=== PATIENT | female | born 1990 | race Hispanic/Latino ===

== ENCOUNTER 2016-07-13 13:32 | Emergency (ER) ==
[2016-07-13 14:15] LABS: MANUAL DIFF NEEDED? NO
[2016-07-13 14:18] LABS: BASO% 0.3 % (0.0-0.8); EOS# 0.13 X1000 (0.0-0.7); EOS% 1.2 % (0.0-10.0); HEMATOCRIT 37.2 % (37.0-47.0); HEMOGLOBIN 12.4 g/dL (12.0-16.0); IMM GRAN# 0.02 X1000 (0.0-0.04); IMM GRAN% 0.2 % (0.0-0.5); LYMPH# 1.51 X1000 (1.2-3.4); LYMPH% 13.4 % (20.5-51.1); MCH 30.2 PG (27-31); MCHC 33.3 g/dL (33-37); MCV 90.5 FL (81-99); MONO# 0.63 X1000 (0.11-0.59); MONO% 5.6 % (1.7-9.3); MPV 11.3 FL (7.4-10.4); NEUT% 79.3 % (42.2-75.2); PLT 271 X1000 (130-400); RBC 4.11 XMIL (4.2-5.4)
[2016-07-13 14:45] LABS: AGAP 12; ALBUMIN 4.2 g/dL (3.5-5.0); ALKALINE PHOSPHATASE 73 U/L (32-104); BUN 6 mg/dL (8-22); CALCIUM 9.2 mg/dL (8.8-10.2); CHLORIDE 100 mmol/L (98-107); COSMO 271; GOT 10 U/L (10-30); GPT 6 U/L (10-36); POTASSIUM 4.1 mmol/L (3.5-5.1); SODIUM 137 mmol/L (136-145); TCO2 25 mmol/L (25-35); TOTAL BILIRUBIN 0.51 mg/dL (0.20-1.00); TOTAL PROTEIN 7.5 g/dL (6.3-8.3)
[2016-07-13] MEDS ORDERED: CLINDAMYCIN IM ONE (15:08)
--- NOTE | 2016-07-13 15:14 | PROVIDER DOCUMENTATION ---
[facility] General - General Chief Complaint: Abscess Stated Complaint: ABSCESS Time Seen by Provider: 07/13/16 14:58 Source: patient Home Medications: Home Medication List Medication Instructions Recorded Confirmed Last Taken Type Hydrocodone/APAP 5 mg/325 mg 1 each PO Q4-6H PRN PRN #14 tablet 07/13/16 Unknown Rx [Hugoton-5] Penicillin V Potassium 500 mg PO 4XDAY #28 tablet 07/13/16 Unknown Rx - History of Present Illness-[facility] General Nature of Presenting Problem: 25 y/o F with no chronic medical problems presents with dental pain and swelling that began yesterday. Patient states she has had trouble with the left upper molar in the past. She has not seen a dentist regarding this. She denies any fever, trouble swallowing or trouble breathing. EENT Location: reports: dental Quality of Pain: reports: aching Severity: reports: moderate Onset/Duration: reports: last night Timing: reports: still present Prearrival Treatment: Initiated no prearrival treatment Associated Symptoms: reports: facial pain/swelling, tooth pain. denies: drooling, fever, sore throat, voice change Similar Symptoms Previously?: Yes Review of Systems - Adult - REVIEW OF SYSTEMS - ADULT Constitutional: reports: no symptoms reported. denies: chills, fever Eyes: reports: no symptoms reported. denies: decreased vision, blurred vision Ears, Nose, Mouth & Throat: denies: ear pain, hearing loss Cardiovascular: reports: no symptoms reported. denies: chest pain Respiratory: reports: no symptoms reported. denies: cough, shortness of breath Gastrointestinal: reports: no symptoms reported. denies: nausea, vomiting Genitourinary: reports: no symptoms reported Musculoskeletal: reports: no symptoms reported. denies: neck pain Integumentary: reports: no symptoms reported. denies: itching, rash Neurological: reports: no symptoms reported. denies: headache/migraines, numbness Psychiatric: reports: no symptoms reported Endocrine: reports: no symptoms reported Hematologic/Lymphatic: reports: no symptoms reported Allergic/Immunologic: reports: no symptoms reported All Other Systems: Reviewed and Negative Past History - Adult - PAST MEDICAL HISTORY-ADULT Review of Records: reports: Nursing Assessment Review, Medications Reviewed Physical Exam- EENT - Physical Exam EENT Initial Vital Signs Reviewed: Yes General Appearance: appears well, alert, no apparent distress Eye Exam: bilateral eye: normal inspection, PERRL, EOMI Nasal Exam: normal inspection Throat Exam: pharynx normal, dental tenderness, other (left 1st molar with tenderness and surrounding erythema of gums. No purulent drainage or fluctuance. ). negative: excessive drooling, pharynx swelling, tongue swollen, tonsillar swelling, trismus, uvula swelling, voice changes Neck: non-tender, full range of motion, supple, normal inspection Respiratory: no respiratory distress, no accessory muscle use Cardiovascular: normal peripheral pulses, regular rate, rhythm Lymphatic: no adenopathy Extremity: normal gait, normal inspection Integumentary: normal color, normal turgor, warm/dry Neurologic: grossly normal, no motor/sensory deficits Psych/Mental Status: normal mood/affect, normal thought content, normal thought process, oriented x 3 Progress - PLAN OF CARE/RESULTS Progress/Plan/Lab Results: Laboratory Tests 07/13/16 07/13/16 14:07 14:07 WBC 11.24 H RBC 4.11 L Hgb 12.4 Hct 37.2 MCV 90.5 MCH 30.2 MCHC 33.3 RDW Std Deviation 12.9 Plt Count 271 MPV 11.3 H Immature Gran % (Auto) 0.2 Neut % (Auto) 79.3 H Lymph % (Auto) 13.4 L Fountain % (Auto) 5.6 Eos % (Auto) 1.2 Baso % (Auto) 0.3 Immature Gran # (Auto) 0.02 Neut # (Auto) 8.92 H Lymph # (Auto) 1.51 Fountain # (Auto) 0.63 H Eos # (Auto) 0.13 Baso # (Auto) 0.03 Sodium 137 Potassium 4.1 Chloride 100 Carbon Dioxide 25 Anion Gap 12 BUN 6 L Creatinine 0.7 Estimated GFR/1.73 m2 > 60 BUN/Creatinine Ratio 9 Glucose 91 Calculated Osmolality 271 Calcium 9.2 Total Bilirubin 0.51 AST 10 ALT 6 L Alkaline Phosphatase 73 Total Protein 7.5 Albumin 4.2 Globulin 3.3 Albumin/Globulin Ratio 1.3 Orders Category Date Time Status CBC WITH DIFF [HEME] Stat Lab 07/13/16 14:07 Completed CMP [COMPREHENSIVE METABOLIC PANEL] [CHEM] Stat Lab 07/13/16 14:07 Completed Clindamycin Med 07/13/16 15:08 Discontinued 600 mg IM NOW ONE Vital Signs Temp Pulse Resp BP Pulse Ox 07/13/16 14:03 98.5 F 109 H 18 125/94 100 Hydrocodone/APAP 5 mg/325 mg [Hugoton-5] 1 each PO Q4-6H PRN PRN #14 tablet Penicillin V Potassium 500 mg PO 4XDAY #28 tablet 07/13/16 Laboratory 07/13/16 07/13/16 14:07 14:07 WBC 11.24 H RBC 4.11 L Hgb 12.4 Hct 37.2 MCV 90.5 MCH 30.2 MCHC 33.3 RDW Std Deviation 12.9 Plt Count 271 MPV 11.3 H Immature Gran % (Auto) 0.2 Neut % (Auto) 79.3 H Lymph % (Auto) 13.4 L Fountain % (Auto) 5.6 Eos % (Auto) 1.2 Baso % (Auto) 0.3 Immature Gran # (Auto) 0.02 Neut # (Auto) 8.92 H Lymph # (Auto) 1.51 Fountain # (Auto) 0.63 H Eos # (Auto) 0.13 Baso # (Auto) 0.03 Sodium 137 Potassium 4.1 Chloride 100 Carbon Dioxide 25 Anion Gap 12 BUN 6 L Creatinine 0.7 Estimated GFR/1.73 m2 > 60 BUN/Creatinine Ratio 9 Glucose 91 Calculated Osmolality 271 Calcium 9.2 Total Bilirubin 0.51 AST 10 ALT 6 L Alkaline Phosphatase 73 Total Protein 7.5 Albumin 4.2 Globulin 3.3 Albumin/Globulin Ratio 1.3 Departure - Departure Time of Disposition Order: 15:08 DIAGNOSIS: Dental infection Disposition: HOME 01 Certified Medical Emergency: Emergent Condition: Good Additional Instructions: Follow up with a dentist within 1-2 days. Return to ER for any new or worsening symptoms. ED Follow Up Instructions: You have been treated by a care provider in the Emergency Department. These instructions are being provided to you so you can have an understanding of how to care for yourself upon discharge. Upon discharge from the Emergency Department, you are responsible for making arrangements for follow-up care by a physician of your choice. Take all prescribed medications as directed. Return to the Emergency Department immediately for any new or worsening symptoms. You may call the Physician Referral phone number at [phone] to obtain a list of Physicians who are taking new patients. Prescriptions: Hydrocodone/APAP 5 mg/325 mg [Hugoton-5] 1 each PO Q4-6H PRN PRN #14 tablet PRN Reason: Pain Penicillin V Potassium 500 mg PO 4XDAY #28 tablet Attestation - Physician/ MOY Attestation Patient care was provided by Advanced Practice Provider:: Yes Advanced Practice Provider:: Tracy Alexander Advanced Practice Provider documentation review:: The Mid-level provider documentation, treatment plan and medical decision making was reviewed by the physician who agrees with all treatment and medical decision making by the MLP.
[2016-07-13 15:32] VITALS: BP 132/88
== END 2016-07-13 15:27 | disposition home or self-care (01) ==
LOC: ED 13:32
DX: K04.7 Periapical abscess without sinus (principal); K08.89 Other specified disorders of teeth and supporting structures; R22.0 Localized swelling, mass and lump, head
CPT/HCPCS: 36415; 80053; 85025; 96372; S0077